=== PATIENT | female | born 1995 | race African-American/Black ===

== ENCOUNTER 2016-10-07 02:23 | Emergency (ER) | payer OTHER ==
[~2016-10-07] VITALS: Ht 165.1 cm; Wt 115.7 kg
[~2016-10-07 02:23] MED LIST: ZITH250T PO
[2016-10-07 02:36] VITALS: BP 126/70; PULSE 93; RESP 18; TEMP 99.7; O2SAT 99
--- NOTE | 2016-10-07 02:59 | PD ---
HPI Chief Complaint: Oral / Dental Pain or Problem Time Seen by Provider: 02:54 Travel History International Travel<30 days: No Contact w/Intl Traveler<30days: No Traveled to known affect area: No History of Present Illness HPI 21-year-old female presents to the emergency department for complaint of dental pain for the past 45 days. According the patient since she's had left lower mandibular dental pain. Now times one week the pain is causing her to develop a headache. No report of difficulty with swallowing no ear pain as sudden onset thunderclap or worst ever headache. No other complaints no fever no chills no nausea no vomiting. Patient is used [id number] acetaminophen and reportedly Goody powder. Patient is not sure of her last menstrual period. Patient does not know if she is . Patient rates her pain 7/10 in intensity. PFSH Past Medical History Narrative Medical Negative past medical history negative surgical history positive alcohol use nursing notes reviewed Medical History: Denies Significant Hx Diminished Hearing: No Tetanus Vaccination: Unknown Influenza Vaccination: No ?: Not Past Surgical History Surgical History: No Previous Surgery Social History Alcohol Use: Yes (OCC) Tobacco Use: No Substance Use: No Allergies-Medications (Allergen,Severity, Reaction): Coded Allergies: No Known Allergies (Unverified , 10/07/16) Reported Meds & Prescriptions Reported Meds & Active Scripts Active No Active Prescriptions or Reported Medications Narrative Medication [id number] medications Review of Systems General / Constitutional: No: Fever, Chills HENT: Positive: Headaches, Dental Difficulties, No: Masses, Earache Cardiovascular: No: Chest Pain or Discomfort Respiratory: No: Shortness of Breath Gastrointestinal: No: Nausea, Vomiting Genitourinary: No: Flank Pain Musculoskeletal: No: Myalgias, Arthralgias Skin: Positive Lumps, No Rash Hematologic/Lymphatic: No: Lymph Node Enlargement Physical Exam Narrative GENERAL: Developed well-nourished female in no acute distress no respiratory distress SKIN: Warm and dry. HEAD: Normocephalic. EYES: No scleral icterus. No injection or drainage. ENT: Mucous membranes moist airway is patent poor dentition affecting the #18 tooth with near erosion of the entire dentition and gingival edema with cysts noted. NECK: Supple, trachea midline. No JVD or lymphadenopathy. No submandibular lymphadenopathy mass tenderness induration fluctuance erythema or increased warmth. CARDIOVASCULAR: Regular rate and rhythm without murmurs, gallops, or rubs. RESPIRATORY: Breath sounds equal bilaterally. No accessory muscle use. GASTROINTESTINAL: Abdomen soft, non-tender, nondistended. MUSCULOSKELETAL: No cyanosis, or edema. BACK: Nontender without obvious deformity. No CVA tenderness. Data Data Last Documented VS Vital Signs Date Time Temp Pulse Resp B/P Pulse Ox O2 Delivery O2 Flow Rate FiO2 10/07/16 02:47 93 18 10/07/16 02:36 99.7 126/70 99 Orders Penicillin V Potassium (Veetids) (10/07/16 03:00) Ed Urine Pregnancytest Poc (10/07/16 02:54) MDM Medical Decision Making Medical Screen Exam Complete: Yes Emergency Medical Condition: Yes Medical Record Reviewed: Yes Interpretation(s) POC hcg: negative Differential Diagnosis Dentalgia, dental caries, dental abscess, apical abscess, Narrative Course Patient given Penicillin VK 500 mg by mouth first-time dose of antibiotic; patient is encouraged to follow-up with dentist for probable dental extraction of the affected tooth. [id number] hCG: negative Diagnosis Primary Impression: Dentalgia Referrals: Dentist call for appointment Patient Instructions: General Instructions Additional Instructions: Complete course of antibiotic as prescribed Follow-up with dentist May use [id number] dental paraffin, Oragel per package directions, and/or warm salt water gargles Return to the emergency department for any concerns or change in condition Take prescription ibuprofen as instructed however avoid use of high-dose ibuprofen for greater than 2-3 days (ibuprofen= Motrin= Advil) Med/Other Pt SpecificInfo: Prescription(s) given Scripts Ibuprofen 800 Mg Mrs905 Mg PO Q8H PRN (PAIN GREATER THAN 5) #12 TAB Ref 0 Prov:Jordyn Kelly MD 10/07/16 Penicillin V Potassium 500 Mg Xty215 Mg PO Q6H 7 Days Ref 0 Prov:Jordyn Kelly MD 10/07/16 Disposition: 01 DISCHARGE HOME Condition: Stable Jordyn Kelly MD Oct 07, 2016 02:59
[2016-10-07] MEDS ORDERED: PENICILLIN V POTASSIUM 500 MG TAB PO ONE (03:00)
[2016-10-07] MEDS ORDERED: IBUP800T23 PO (03:41)
[2016-10-07] MEDS ORDERED: PENI500T PO (03:41)
== END 2016-10-07 03:52 | disposition home or self-care (01) ==
LOC: PHED 02:23
DX: K08.89 Other specified disorders of teeth and supporting structures (principal)
CPT/HCPCS: 84703; 99282

== ENCOUNTER 2017-07-05 16:02 | Emergency (ER) | payer OTHER ==
[~2017-07-05] VITALS: Ht 167.6 cm; Wt 114.0 kg
[~2017-07-05 16:02] MED LIST changes: +IBUP800T23 PO; +PENI500T PO; -ZITH250T PO
[2017-07-05 16:09] VITALS: BP 109/59; PULSE 86; RESP 16; TEMP 99.2; O2SAT 98
[2017-07-05] MEDS ORDERED: LIDOCAINE HCL 1% 50 ML VIAL INFIL ONE (17:30)
--- NOTE | 2017-07-05 17:44 | PD ---
HPI . Abscess right axilla Chief Complaint: Skin Problem Time Seen by Provider: 17:14 Travel History International Travel<30 days: No Contact w/Intl Traveler<30days: No Traveled to known affect area: No History of Present Illness HPI 22-year-old female presents emergency department for evaluation of abscess right axilla. The abscess is approximately 3 cm x 3 cm with fluctuation. No erythema noted. She says it initially started 2 weeks ago but has grown significantly larger within the last couple days. Patient denies any major medical history. Patient does not take any daily medication. Patient denies any fevers, chills, malaise, chest pain, shortness breath, abdominal pain, nausea, vomiting or lightheadedness. PFSH Past Medical History Medical History: Denies Significant Hx Diminished Hearing: No Tetanus Vaccination: Unknown ?: Not LMP: LAST MONTH Past Surgical History Surgical History: No Previous Surgery Social History Alcohol Use: Yes (OCC) Tobacco Use: No Substance Use: No Allergies-Medications (Allergen,Severity, Reaction): Coded Allergies: No Known Allergies (Unverified , 07/05/17) Reported Meds & Prescriptions Reported Meds & Active Scripts Active Keflex (Cephalexin) 500 Mg Cap 500 Mg PO Q6H 5 Days Bactrim DS (Sulfamethoxazole-Trimethoprim) 800-160 Mg Tab 1 Tab PO BID 10 Days Review of Systems Except as stated in HPI: all other systems reviewed are Neg Physical Exam Narrative GENERAL: Well-nourished, well-developed 22-year-old female patient in no acute distress. SKIN: 3 cm 3 cm abscess to right axilla with fluctuation. No erythema noted. . HEAD: Normocephalic. Atraumatic EYES: No scleral icterus. No injection or drainage. NECK: Supple, trachea midline. No JVD or lymphadenopathy. CARDIOVASCULAR: Regular rate and rhythm without murmurs, gallops, or rubs. RESPIRATORY: Breath sounds equal bilaterally. No accessory muscle use. GASTROINTESTINAL: Abdomen soft, non-tender, nondistended. MUSCULOSKELETAL: No cyanosis, or edema. BACK: Nontender without obvious deformity. No CVA tenderness. Data Data Last Documented VS Vital Signs Date Time Temp Pulse Resp B/P (MAP) Pulse Ox O2 Delivery O2 Flow Rate FiO2 07/05/17 16:09 99.2 86 16 109/59 (76) 98 Orders Orders Lidocaine 1% Inj (50 Ml) (Xylocaine 1% I (07/05/17 17:30) Wound Culture And Gram Stain (07/05/17 17:19) [facility] Medical Decision Making Medical Screen Exam Complete: Yes Emergency Medical Condition: Yes Interpretation(s) Afebrile, no tachycardia Differential Diagnosis Different diagnosis includes but not limited to cellulitis, abscess, folliculitis Narrative Course 22-year-old female patient presents to emergency room for evaluation of right axilla abscess. Patient is afebrile, no tachycardia. I&D will be performed. Please see my procedural narrative. Patient denies any history of any bacterial resistant infections. Patient denies any fevers, chills, malaise. Based on patient's symptoms, clinical presentation, vital sign review and physical exam it is not necessary to admit the patient to the hospital or keep the patient in the emergency department for further evaluation. Patient will be discharged home on Bactrim and Keflex. Procedures Procedure Narrative INCISION AND DRAINAGE OF ABSCESS: The area was prepped and was sterilely draped. A subcutaneous wheal of 1 % Xylocaine with a total number 5 mL was used to anesthetize the area properly. A number #11 scalpel was used to make a 1 cm incision across the area of the abscess. The abscess was drained, complex loculations were broken down, and irrigated with normal saline. Cultures were obtained. Diagnosis Primary Impression: Abscess Additional Impression: Encounter for incision and drainage procedure Referrals: Primary Care Physician Patient Instructions: Abscess (ED), Abscess Incision and Drainage (DC), General Instructions Additional Instructions: Please return to emergency department if your symptoms return or worsen. Follow up with your primary care provider. Take medications as prescribed. Med/Other Pt SpecificInfo: Prescription(s) given Scripts Cephalexin (Keflex) 500 Mg Cap 500 MG PO Q6H for Infection for 5 Days, #20 CAP 0 Refills Prov: Irene Galvez 07/05/17 Sulfamethoxazole-Trimethoprim (Bactrim DS) 800-160 Mg Tab 1 TAB PO BID for Infection for 10 Days, #20 TAB 0 Refills Prov: Irene Galvez 07/05/17 Disposition: 01 DISCHARGE HOME Condition: Stable Irene Galvez Jul 05, 2017 17:44
[2017-07-05] MEDS ORDERED: CEPH-460 PO (17:56)
[2017-07-05] MEDS ORDERED: BACT800T5 PO (17:56)
== END 2017-07-05 18:37 | disposition home or self-care (01) ==
LOC: PHED 16:02 → PHEFT 18:37
DX: L02.411 Cutaneous abscess of right axilla (principal)
CPT/HCPCS: 10060; 87070; 87077; 87186; 87205

== ENCOUNTER 2017-07-07 15:20 | Emergency (ER) | payer OTHER ==
[~2017-07-07] VITALS: Ht 167.6 cm; Wt 115.1 kg
[~2017-07-07 15:20] MED LIST changes: +BACT800T5 PO; +CEPH-460 PO; -IBUP800T23 PO; -PENI500T PO
[2017-07-07 15:32] VITALS: BP 134/59; PULSE 82; RESP 16; TEMP 99; O2SAT 97
--- NOTE | 2017-07-07 15:45 | PD ---
HPI Chief Complaint: Wound/Suture/Staple Re-Check Time Seen by Provider: 15:35 Travel History International Travel<30 days: No Contact w/Intl Traveler<30days: No Traveled to known affect area: No History of Present Illness HPI 22y/f presents to the ED s/p I&D of abscess right axilla 2 days ago wound check. States she started her Abx today. States that she has not changed the dressing yet, no discharge that she has noticed. She has full range of motion of her arm, and plans of mild tenderness to site. Denies fevers, chills, chest pain, SOB PFSH Past Medical History Diminished Hearing: No ?: Not LMP: 4 weeks ago, states irregular Social History Alcohol Use: Yes (OCC) Tobacco Use: No Substance Use: No Allergies-Medications (Allergen,Severity, Reaction): Coded Allergies: No Known Allergies (Unverified , 07/07/17) Reported Meds & Prescriptions Reported Meds & Active Scripts Active Keflex (Cephalexin) 500 Mg Cap 500 Mg PO Q6H 5 Days Bactrim DS (Sulfamethoxazole-Trimethoprim) 800-160 Mg Tab 1 Tab PO BID 10 Days Review of Systems Except as stated in HPI: all other systems reviewed are Neg Physical Exam Narrative GENERAL: Well-nourished, well-developed patient. SKIN: Focused skin assessment warm/dry. Right axilla with 2cm indurated lesion, central healing incision with same dressings from 2 days ago. no fluid expressed with palpation. no signs of lymphangiopathic spread. HEAD: Normocephalic. EYES: No scleral icterus. No injection or drainage. CARDIOVASCULAR: Regular rate and rhythm without murmurs, gallops, or rubs. RESPIRATORY: Breath sounds equal bilaterally. No accessory muscle use. MUSCULOSKELETAL: No cyanosis, or edema. BACK: Nontender without obvious deformity. No CVA tenderness. Data Data Last Documented VS Vital Signs Date Time Temp Pulse Resp B/P (MAP) Pulse Ox O2 Delivery O2 Flow Rate FiO2 07/07/17 15:43 16 07/07/17 15:32 99.0 82 134/59 (84) 97 Orders Orders Ed Discharge Order (07/07/17 15:45) MDM Medical Decision Making Medical Screen Exam Complete: Yes Emergency Medical Condition: Yes Differential Diagnosis Right axilla Abscess status post I&D versus cellulitis versus acne Narrative Course 22-year-old female here for a check of an I&D that occurred 2 days ago. He says that she only just started taking her antibiotics today and has not changed her dressing because she wasn't sure that she should. She denies any significant exudate, warmth or edema. Physical exam revealed right axilla 2 cm indurated and or nodule with a healing incision. No exudate, or expression of fluid. Patient advised to continue antibiotics until complete. Warm compresses and return to emergency department if symptoms persist or worsen if she develops signs of infection Family advised patient to find a primary care physician for her care Diagnosis Primary Impression: Abscess Referrals: [facility] Additional Instructions: Keep area clean and dry Applied new dressings daily Take all antibiotics as prescribed If site becomes more painful, swollen or starts to develop pus return to the emergency department And a primary care physician for your regular treatment. Disposition: 01 DISCHARGE HOME Condition: Stable Carolyn Frausto Jul 07, 2017 15:45
== END 2017-07-07 16:09 | disposition home or self-care (01) ==
LOC: PHEFT 15:20
DX: L02.411 Cutaneous abscess of right axilla (principal); Z51.89 Encounter for other specified aftercare
CPT/HCPCS: 99281

== ENCOUNTER 2018-01-22 00:42 | Emergency (ER) | payer OTHER ==
[2018-01-22 00:54] VITALS: BP 146/71; PULSE 81; RESP 18; TEMP 97.6; O2SAT 100
[2018-01-22] MEDS ORDERED: BACT800T5 PO ×2 (02:47→02:48)
[2018-01-22] MEDS ORDERED: CEPH-460 PO ×2 (02:47→02:48)
--- NOTE | 2018-01-22 02:51 | PD ---
HPI Chief Complaint: Lump, Cyst, Hernia Time Seen by Provider: 02:06 Travel History International Travel<30 days: No Contact w/Intl Traveler<30days: No Traveled to known affect area: No History of Present Illness HPI 22-year-old female presents for evaluation of painful area in the posterior neck which started 1 week ago. Throbbing, constant, worse with palpation. No fevers or chills. No other complaints. PFSH Past Medical History Medical History: Denies Significant Hx Diminished Hearing: No Tetanus Vaccination: Unknown Influenza Vaccination: No ?: Not Past Surgical History Surgical History: No Previous Surgery Social History Alcohol Use: Yes (OCC) Tobacco Use: No Substance Use: No Allergies-Medications (Allergen,Severity, Reaction): Coded Allergies: No Known Allergies (Unverified Adverse Reaction, Unknown, 01/22/18) Reported Meds & Prescriptions Reported Meds & Active Scripts Active Keflex (Cephalexin) 500 Mg Cap 500 Mg PO Q8H Bactrim DS (Sulfamethoxazole-Trimethoprim) 800-160 Mg Tab 1 Tab PO BID Keflex (Cephalexin) 500 Mg Cap 500 Mg PO Q6H 5 Days Bactrim DS (Sulfamethoxazole-Trimethoprim) 800-160 Mg Tab 1 Tab PO BID 10 Days Review of Systems Except as stated in HPI: all other systems reviewed are Neg Physical Exam Narrative GENERAL: Well-nourished female no acute distress SKIN: Warm and dry. 2 cm area of induration and erythema on the posterior neck. No fluctuance or drainage. HEAD: Atraumatic. Normocephalic. EYES: Pupils equal and round. No scleral icterus. No injection or drainage. ENT: No nasal bleeding or discharge. Mucous membranes pink and moist. NECK: Trachea midline. No JVD. Some posterior cervical lymphadenopathy noted. CARDIOVASCULAR: Regular rate and rhythm. No murmur appreciated. RESPIRATORY: No accessory muscle use. Clear to auscultation. Breath sounds equal bilaterally. Data Data Last Documented VS Vital Signs Date Time Temp Pulse Resp B/P (MAP) Pulse Ox O2 Delivery O2 Flow Rate FiO2 01/22/18 00:54 97.6 81 18 146/71 (96) 100 MDM Medical Decision Making Medical Screen Exam Complete: Yes Emergency Medical Condition: Yes Medical Record Reviewed: Yes Differential Diagnosis Cellulitis, abscess, carbuncle, furuncle, infected cyst, lymphadenitis Narrative Course The patient will be treated with Bactrim and Keflex for cellulitis. Diagnosis Primary Impression: Cellulitis Additional Instructions: Medication as prescribed. Warm compresses several times a day 15 minutes at a time. Return for new or worsening symptoms. Med/Other Pt SpecificInfo: Prescription(s) given Scripts Cephalexin (Keflex) 500 Mg Cap 500 MG PO Q8H for Infection, #30 CAP 0 Refills Prov: Nick Funk MD 01/22/18 Sulfamethoxazole-Trimethoprim (Bactrim DS) 800-160 Mg Tab 1 TAB PO BID for Infection, #20 TAB 0 Refills Prov: Nick Funk MD 01/22/18 Disposition: 01 DISCHARGE HOME Condition: Stable Josh Baker Jan 22, 2018 02:51
== END 2018-01-22 03:16 | disposition home or self-care (01) ==
LOC: NEPD 00:42
DX: L03.90 Cellulitis, unspecified (principal)
CPT/HCPCS: 99283